=== PATIENT | female | born 1955 | race Caucasian/White ===

== ENCOUNTER → 2021-12-17 | Outpatient (CLI) | payer MEDICARE, OTHER | LOC: MERGE 10:12 → ORTHO 10:12 | PROVIDERS: ATTEND Orthopaedic Surgery | DX: M17.12 Unilateral primary osteoarthritis, left knee (principal) | CPT/HCPCS: 20610; G0463 ==

== ENCOUNTER → 2021-12-24 | Outpatient (CLI) | payer MEDICARE, OTHER | LOC: ORTHO 11:00 | PROVIDERS: ATTEND Orthopaedic Surgery | DX: M25.562 Pain in left knee (principal) | CPT/HCPCS: 99213 ==

== ENCOUNTER → 2021-12-31 | Outpatient (CLI) | payer MEDICARE, OTHER ==
--- NOTE | 2021-12-31 14:30 | Diagnostic Imaging Report ---
PROCEDURE: MRI left joint lower extremity without contrast. TECHNIQUE: Multiplanar, multisequence non contrast-enhanced MRI of the left lower extremity was accomplished. INDICATION: Knee pain for several weeks. No known injury. EXAMINATION: Left knee MRI without contrast 12/31/2021. FINDINGS: There is a heterogeneous high signal noted within the patellar tendon likely due to tendinosis. There is no discontinuity. Visualized quadriceps tendon is intact. The ACL and PCL are intact. The MCL is intact although there is surrounding edema along the distal MCL likely reactive given findings in the medial joint compartment described below. The lateral collateral ligamentous complex is intact. There is a multidirectional degenerative type tear involving the entire lateral meniscus most marked within the anterior horn. Diffuse abnormal signal intensity seen throughout the posterior horn and body of the medial meniscus consistent with a tear. There is mild to moderate loss of cartilage in the medial compartment. Cartilage in the lateral joint spaces maintained. Moderate to severe loss of cartilage along the patellofemoral joint is seen with subchondral edema in the lateral facet. There is diffuse T2 hyperintensity throughout the medial tibial plateau with a subchondral transverse hypointensity on T1 and T2-weighted imaging along the medial border of the medial tibial plateau suspicious for an insufficiency fracture. No significant depression or displaced fractures appreciated. IMPRESSION: 1. Insufficiency fracture with surrounding edema within the medial tibial plateau. 2. Tears of the medial and lateral menisci. 3. Findings of tendinosis throughout the patellar tendon which is intact. 4. Tricompartmental degenerative disease. Dictated by: Dictated on workstation # [id number]
== END ==
LOC: RAD 13:15
PROVIDERS: ATTEND Orthopaedic Surgery
DX: S83.282A Other tear of lateral meniscus, current injury, left knee, initial encounter (principal); S83.242A Other tear of medial meniscus, current injury, left knee, initial encounter; M17.12 Unilateral primary osteoarthritis, left knee; M67.864 Other specified disorders of tendon, left knee; X58.XXXA Exposure to other specified factors, initial encounter
CPT/HCPCS: 73721

== ENCOUNTER → 2022-01-28 | Outpatient (CLI) | payer MEDICARE, OTHER ==
--- NOTE | 2022-01-28 11:15 | Diagnostic Imaging Report ---
Indication: Increasing left knee pain. Time of Exam: 1100 a.m. 4 views left knee were obtained. There are degenerative changes involving all 3 compartments with mild joint space narrowing of the medial and patellofemoral compartments. There is chondrocalcinosis of the medial and lateral compartments. No fracture, dislocation or effusion is detected. IMPRESSION: Degenerative changes. No acute bony abnormality is detected. Dictated by: Dictated on workstation # [id number]
== END ==
LOC: ORTHO 10:49
PROVIDERS: ATTEND Orthopaedic Surgery
DX: M84.362A Stress fracture, left tibia, initial encounter for fracture (principal)
CPT/HCPCS: 73564; G0463; 99213

== ENCOUNTER → 2022-02-25 | Outpatient (CLI) | payer MEDICARE, OTHER ==
--- NOTE | 2022-02-25 11:02 | Diagnostic Imaging Report ---
Indication: Ortho assessment. Time of Exam: 10:32 AM 3 views left knee were obtained and compared with exam from 01/28/2022. Alignment is normal. There is chondrocalcinosis of the lateral and medial compartments. Medial and patellofemoral compartment degenerative change with joint space narrowing is noted. No fracture, dislocation or effusion is seen. IMPRESSION: Chronic degenerative changes. No acute bony abnormality is detected. Dictated by: Dictated on workstation # [id number]
== END ==
LOC: ORTHO 10:24
PROVIDERS: ATTEND Orthopaedic Surgery
DX: M17.12 Unilateral primary osteoarthritis, left knee (principal)
CPT/HCPCS: 73562; G0463; 99213

== ENCOUNTER → 2022-04-08 | Outpatient (CLI) | payer MEDICARE, OTHER | LOC: ORTHO 09:30 | PROVIDERS: ATTEND Orthopaedic Surgery | DX: M84.362A Stress fracture, left tibia, initial encounter for fracture (principal); X58.XXXA Exposure to other specified factors, initial encounter | CPT/HCPCS: 99213 ==

== ENCOUNTER → 2022-04-15 | Outpatient (CLI) | payer MEDICARE, OTHER ==
--- NOTE | 2022-04-15 10:55 | Diagnostic Imaging Report ---
EXAMINATION: Magnetic resonance imaging of the left knee without intravenous contrast DATE: April 15, 2022. COMPARISON: Left knee radiographs January 28, 2022. MRI left knee December 31, 2021. INDICATION: 66-year-old female, left knee pain. TECHNIQUE: Multiplanar, multisequence non contrast enhanced MR imaging was accomplished. FINDINGS: MENISCI: There is a tear of the posterior root attachment of the medial meniscus without current medial meniscal extrusion. There is signal in the body and the posterior horn of the medial meniscus which is not clearly contacting an articular surface. This is best classified as low to intermediate probability for tear. There is a longitudinal horizontal type tear involving the anterior horn and body of the lateral meniscus. LIGAMENTS AND TENDONS: The anterior and posterior cruciate ligaments are intact. The medial collateral ligament is intact. The iliotibial band, mid third lateral capsular ligament, fibular collateral ligament, biceps femoris tendon and conjoined tendon are intact. The quadriceps tendon and patella ligament are intact. JOINT: There are broad areas of full-thickness cartilage loss of the lateral patellar facet. There are broad areas of full-thickness or near full-thickness cartilage loss of the mid to posterior weightbearing portion of the medial femoral condyle. There is thinning of the adjacent cartilage of the medial tibial plateau. The lateral compartment cartilage is grossly intact. There is a moderate-sized knee joint effusion. There is no identified intra-articular body or prominent synovitis. BONE: There is prominent edema-like signal in the medial femoral condyle. There is a small focal area of low T1 marrow signal which could reflect an early subchondral fracture line on coronal PD sequence image 17. BURSAE AND SOFT TISSUES: There is no Caballero's cyst. There is edema involving portions of the soleus muscle. There is nonspecific anterior subcutaneous edema. IMPRESSION: 1. Tear involving the posterior root attachment of the medial meniscus without current medial meniscal extrusion. Low to intermediate probability for tear of the body and posterior horn of the medial meniscus. 2. Longitudinal horizontal type tear involving the anterior horn and body of the lateral meniscus. 3. Intact anterior and posterior cruciate ligaments. Additional ligaments and tendons are intact. 4. Severe medial and patellofemoral compartment osteoarthritis with moderate sized knee joint effusion. 5. Edema-like signal in the medial femoral condyle which is most likely stress related with question of early subchondral fracture of the medial femoral condyle in its mid weightbearing aspect. This may be fatigue or insufficiency related. Dictated by: Dictated on workstation # [id number]
== END ==
LOC: RAD 08:45
PROVIDERS: ATTEND Orthopaedic Surgery
DX: M84.362G Stress fracture, left tibia, subsequent encounter for fracture with delayed healing (principal); S83.242A Other tear of medial meniscus, current injury, left knee, initial encounter; S83.282A Other tear of lateral meniscus, current injury, left knee, initial encounter; M17.12 Unilateral primary osteoarthritis, left knee
CPT/HCPCS: 73721